=== PATIENT | female | born 1995 | race Caucasian/White ===

== ENCOUNTER 2019-07-15 09:27 | Emergency (ER) | payer OTHER ==
[~2019-07-15] VITALS: Ht 157.5 cm; Wt 59.9 kg
[2019-07-15 09:32] VITALS: Ht 157.5 cm; Wt 59.9 kg
[2019-07-15 09:58] VITALS: BP 121/66
== END 2019-07-15 09:58 | disposition home or self-care (01) ==
LOC: ED 09:27
DX: S01.81XD Laceration without foreign body of other part of head, subsequent encounter (principal); X99.8XXD Assault by other sharp object, subsequent encounter

== ENCOUNTER 2019-10-07 15:10 | Emergency (ER) | payer OTHER ==
[~2019-10-07] VITALS: Ht 157.5 cm; Wt 58.1 kg
[2019-10-07 15:21] VITALS: Ht 157.5 cm; Wt 58.1 kg
[2019-10-07 16:45] LABS: PLATELET COUNT 231 x10^3mcL (130-400)
[2019-10-07 16:50] LABS: CALCIUM 8.6 mg/dL (8.5-10.1); CHLORIDE SERUM 101 mmol/L (98-107); CREATININE SERUM 0.7 mg/dL (0.6-1.0); GFR1 > 60 mL/min; GLUCOSE SERUM 87 mg/dL (74-106); POTASSIUM SERUM 3.5 mmol/L (3.5-5.1); SODIUM SERUM 137 mmol/L (136-145)
[2019-10-07 16:51] LABS: RED CELL DISTRIBUTION WIDTH 21.9 % (11.5-14.5)
[2019-10-07 17:03] LABS: FREE T4 1.13 ng/dL (0.76-1.46); T4(THYROXINE) 9.7 ug/dL (4.7-13.3)
[2019-10-07 17:04] LABS: ALBUMIN 3.8 g/dL (3.4-5.0); ALKALINE PHOSPHATASE 106 U/L (46-116); ALT/SGPT 135 U/L (14-59); AST/SGOT 180 U/L (15-37); BILIRUBIN TOTAL 0.7 mg/dL (0.20-1.00); TOTAL PROTEIN, SERUM 8.1 g/dL (6.4-8.2)
[2019-10-07 17:06] LABS: T3 TOTAL 1.48 ng/mL
[2019-10-07 17:09] LABS: ATYPICAL LYMPH 2 %; BAND NEUTROPHIL 0 % (0-10); BASOPHIL 0 % (0-2); MONOCYTE 4 % (0-7); SEGMENTED NEUTROPHILS 25 % (37-75)
[2019-10-07 17:10] LABS: UA SPECIFIC GRAVITY <=1.005 (1.005-1.035); microscopic required? YES; urine erythrocyte NEGATIVE (NEGATIVE)
[2019-10-07 17:11] LABS: PLATELET MORPHOLOGY PLATELETS NORMAL; rbc morphology (normal/abnorm) ABNORMAL (NORMAL)
[2019-10-07 17:53] VITALS: BP 105/63
== END 2019-10-07 17:53 | disposition home or self-care (01) ==
LOC: ED 15:10
PROVIDERS: Emergency Medicine
DX: B34.9 Viral infection, unspecified (principal); L29.9 Pruritus, unspecified; D64.9 Anemia, unspecified; R74.0 Nonspecific elevation of levels of transaminase and lactic acid dehydrogenase [LDH]
CPT/HCPCS: 36415; 84439